=== PATIENT | female | born 1950 | race Caucasian/White ===

== ENCOUNTER → 2021-05-18 | Outpatient (CLI) | payer BC, MEDICARE ==
[~2021-05-18] MED LIST: ALEN70TA82; CALCTAB89 PO; CARV25TA; ERGO500029; FENO135C6; FERR325T18; FURO20TA2; GLIM2TAB29; JANU100T; LATA0.0015 OU; METF10004; TIMO0.5S39 OU
== END ==
LOC: M LABSMTC 10:09
PROVIDERS: ATTEND Pediatrics
DX: Z01.812 Encounter for preprocedural laboratory examination (principal); Z20.822 Contact with and (suspected) exposure to COVID-19